=== PATIENT | male | born 1940 | race Two or more races ===

== ENCOUNTER 2018-08-07 04:45 | Day surgery (SDC) | payer OTHER ==
[~2018-08-07 04:45] MED LIST: ASPIR-LOW81 MG PO; CENTRUM ADULTS1 EACH PO; ZOCOR PO
== END 2018-08-07 13:10 | disposition home or self-care (01) ==
LOC: CIR.AMB 04:45
DX: K40.90 Unilateral inguinal hernia, without obstruction or gangrene, not specified as recurrent (principal)

== ENCOUNTER 2019-03-01 07:15 | Outpatient (CLI) | payer OTHER | END 2019-03-01 07:30 | disposition home or self-care (01) | LOC: NUCLEAR 07:15 | DX: C61 Malignant neoplasm of prostate (principal) | CPT/HCPCS: 78306; 78320; A9503 ==

== ENCOUNTER 2020-07-09 08:56 | Inpatient (IN) | payer OTHER ==
[~2020-07-09] VITALS: Ht 170.2 cm; Wt 76.2 kg
[2020-07-14] MEDS ORDERED: SIMVASTATIN10 MG PO (11:55)
== END 2020-07-17 19:16 | disposition home or self-care (01) | DRG 872 ==
LOC: ER 08:56 → MEDI 17:12 → MEDJ 07-11 19:24
PROVIDERS: ADMIT Internal Medicine; ATTEND Internal Medicine
PROC: BW21ZZZ Computerized Tomography (CT Scan) of Abdomen and Pelvis (ICD-10-PCS; principal; 2020-07-09)
PROC: B24BYZZ Ultrasonography of Heart with Aorta using Other Contrast (ICD-10-PCS; 2020-07-11)
PROC: 8E0ZXY6 Isolation (ICD-10-PCS; 2020-07-11)
PROC: BW41ZZZ Ultrasonography of Abdomen and Pelvis (ICD-10-PCS; 2020-07-12)
DX: A41.51 Sepsis due to Escherichia coli [E. coli] (principal); N12 Tubulo-interstitial nephritis, not specified as acute or chronic; N17.8 Other acute kidney failure; T80.1XXA Vascular complications following infusion, transfusion and therapeutic injection, initial encounter; Z16.12 Extended spectrum beta lactamase (ESBL) resistance; E86.0 Dehydration; K40.90 Unilateral inguinal hernia, without obstruction or gangrene, not specified as recurrent; J47.9 Bronchiectasis, uncomplicated; I80.8 Phlebitis and thrombophlebitis of other sites; Z20.828 Contact with and (suspected) exposure to other viral communicable diseases

== ENCOUNTER 2020-08-31 12:32 | Inpatient (IN) | payer OTHER ==
[~2020-08-31] VITALS: Ht 170.2 cm; Wt 72.6 kg
[~2020-08-31 12:32] MED LIST changes: +SIMVASTATIN10 MG PO
[2020-09-10] MEDS ORDERED: SIMVASTATIN10 MG PO (15:52)
[2020-09-10] MEDS ORDERED: ZINC SULFATE220 M2 PO (15:52)
[2020-09-10] MEDS ORDERED: PROSCAR5 MG PO (15:52)
[2020-09-10] MEDS ORDERED: VITAMIN C500 M1 PO (15:52)
[2020-09-10] MEDS ORDERED: MELATONIN5 M2 PO (15:52)
[2020-09-10] MEDS ORDERED: ECOTRIN81 MG PO (15:52)
== END 2020-09-10 15:57 | disposition home or self-care (01) | DRG 689 ==
LOC: ER 12:32 → MEDI 21:04 → MEDJ 21:04 → MEDI 09-07 17:08
PROVIDERS: ADMIT Internal Medicine; ATTEND Internal Medicine
PROC: 4A033R1 Measurement of Arterial Saturation, Peripheral, Percutaneous Approach (ICD-10-PCS; principal; 2020-08-31)
PROC: BB24ZZZ Computerized Tomography (CT Scan) of Bilateral Lungs (ICD-10-PCS; 2020-08-31)
PROC: 8E0ZXY6 Isolation (ICD-10-PCS; 2020-08-31)
PROC: 4A12X4Z Monitoring of Cardiac Electrical Activity, External Approach (ICD-10-PCS; 2020-09-01)
PROC: 05HY33Z Insertion of Infusion Device into Upper Vein, Percutaneous Approach (ICD-10-PCS; 2020-09-05)
DX: N39.0 Urinary tract infection, site not specified (principal); U07.1 COVID-19; Z16.12 Extended spectrum beta lactamase (ESBL) resistance; E86.0 Dehydration; N28.9 Disorder of kidney and ureter, unspecified; A49.8 Other bacterial infections of unspecified site; B96.29 Other Escherichia coli [E. coli] as the cause of diseases classified elsewhere

== ENCOUNTER 2021-10-24 22:31 | Emergency (ER) | payer OTHER ==
[~2021-10-24] VITALS: Ht 170.2 cm; Wt 73.0 kg
[~2021-10-24 22:31] MED LIST changes: +ECOTRIN81 MG PO; +MELATONIN5 M2 PO; +PROSCAR5 MG PO; +VITAMIN C500 M1 PO; +ZINC SULFATE220 M2 PO
[2021-10-25] MEDS ORDERED: LISINOPRIL10 MG (00:27)
[2021-10-25] MEDS ORDERED: CIPRO500 MG PO (05:39)
[2021-10-25] MEDS ORDERED: PYRIDIUM DS200 MG PO (05:39)
== END 2021-10-25 05:42 | disposition home or self-care (01) ==
LOC: ER 22:31
DX: N39.0 Urinary tract infection, site not specified (principal)

== ENCOUNTER 2021-11-03 05:25 | Inpatient (IN) | payer OTHER ==
[~2021-11-03] VITALS: Ht 213.4 cm; Wt 5.0 kg
[~2021-11-03 05:25] MED LIST changes: +CIPRO500 MG PO; +LISINOPRIL10 MG; +PYRIDIUM DS200 MG PO
== END 2021-11-11 21:38 | disposition home or self-care (01) | DRG 690 ==
LOC: ER 05:25 → MEDI 22:54 → MEDJ 22:54 → MEDI 11-04 05:26
PROVIDERS: ADMIT Internal Medicine; ATTEND Internal Medicine
PROC: BW21ZZZ Computerized Tomography (CT Scan) of Abdomen and Pelvis (ICD-10-PCS; principal; 2021-11-03)
DX: N39.0 Urinary tract infection, site not specified (principal); Z16.12 Extended spectrum beta lactamase (ESBL) resistance; N17.8 Other acute kidney failure; R31.9 Hematuria, unspecified; K59.09 Other constipation; K57.30 Diverticulosis of large intestine without perforation or abscess without bleeding; B96.29 Other Escherichia coli [E. coli] as the cause of diseases classified elsewhere; I10 Essential (primary) hypertension; E86.0 Dehydration; E87.8 Other disorders of electrolyte and fluid balance, not elsewhere classified; Z20.822 Contact with and (suspected) exposure to COVID-19

== ENCOUNTER 2021-12-02 12:27 | Emergency (ER) | payer OTHER ==
[~2021-12-02] VITALS: Ht 167.6 cm; Wt 74.4 kg
[2021-12-02] MEDS ORDERED: ZOCOR20 MG (13:05)
== END 2021-12-02 15:22 | disposition home or self-care (01) ==
LOC: ER 12:27
DX: Z45.2 Encounter for adjustment and management of vascular access device (principal)

== ENCOUNTER 2022-09-27 07:08 | Outpatient (CLI) | payer OTHER ==
[~2022-09-27 07:08] MED LIST changes: +ZOCOR20 MG
== END 2022-09-27 07:10 | disposition home or self-care (01) ==
LOC: NUCLEAR 07:08
PROVIDERS: ATTEND Urology
DX: N40.0 Benign prostatic hyperplasia without lower urinary tract symptoms (principal); R97.20 Elevated prostate specific antigen [PSA]; C61 Malignant neoplasm of prostate
CPT/HCPCS: 78306; A9503